=== PATIENT | female | born 1950 | race Caucasian/White ===

== ENCOUNTER → 2020-04-07 14:06 | Outpatient (BNVA) | payer MEDICARE, SELFPAY | PROVIDERS: PCP Internal Medicine; Visit Provider Anesthesiology | DX: M19.011 Primary osteoarthritis, right shoulder (principal); M19.012 Primary osteoarthritis, left shoulder; M17.0 Bilateral primary osteoarthritis of knee; G89.4 Chronic pain syndrome | CPT/HCPCS: 99212 ==

== ENCOUNTER → 2020-09-27 12:51 | Outpatient (BNVA) | payer MEDICARE, SELFPAY | PROVIDERS: PCP Internal Medicine; Referring Provider Internal Medicine; Visit Provider Surgery | DX: K43.9 Ventral hernia without obstruction or gangrene (principal); E66.9 Obesity, unspecified; F17.200 Nicotine dependence, unspecified, uncomplicated; Z68.31 Body mass index [BMI] 31.0-31.9, adult | CPT/HCPCS: Q3014 ==

== ENCOUNTER → 2020-10-29 08:56 | Outpatient (BNVA) | payer MEDICARE, SELFPAY | PROVIDERS: PCP Internal Medicine; Visit Provider Surgery | DX: E66.9 Obesity, unspecified (principal); Z68.31 Body mass index [BMI] 31.0-31.9, adult | CPT/HCPCS: 99212 ==

== ENCOUNTER → 2022-02-01 09:23 | Outpatient (BNVA) | payer MEDICARE, SELFPAY | PROVIDERS: PCP Internal Medicine; Visit Provider Anesthesiology | DX: M19.011 Primary osteoarthritis, right shoulder (principal); M19.012 Primary osteoarthritis, left shoulder; M17.0 Bilateral primary osteoarthritis of knee; M25.511 Pain in right shoulder; M25.512 Pain in left shoulder; G89.4 Chronic pain syndrome | CPT/HCPCS: 99212 ==

== ENCOUNTER 2022-02-28 06:08 | Outpatient (REF) | payer MEDICARE, SELFPAY | END 2022-02-28 06:09 | disposition home or self-care (01) | LOC: CF 06:08 | PROVIDERS: Visit Provider Anesthesiology | DX: M25.511 Pain in right shoulder (principal); M25.512 Pain in left shoulder ==

== ENCOUNTER → 2022-06-19 15:20 | Outpatient (BNVA) | payer MEDICARE, SELFPAY | PROVIDERS: PCP Internal Medicine; Visit Provider Anesthesiology | DX: M19.011 Primary osteoarthritis, right shoulder (principal); M19.012 Primary osteoarthritis, left shoulder; M17.0 Bilateral primary osteoarthritis of knee; M25.511 Pain in right shoulder; M25.512 Pain in left shoulder; S42.92XP Fracture of left shoulder girdle, part unspecified, subsequent encounter for fracture with malunion; G89.4 Chronic pain syndrome | CPT/HCPCS: 99212 ==

== ENCOUNTER 2022-07-06 15:18 | Outpatient (REF) | payer MEDICARE, SELFPAY ==
--- NOTE | ~2022-07-06 | XR_ITS ---
EXAMINATION: XR SHOULDER, LEFT CLINICAL INFORMATION: Pain COMPARISON: None available. TECHNIQUE: Two views of the left shoulder. FINDINGS: There is severe arthritis at the glenohumeral and acromioclavicular joints. There may be anterior subluxation of the humeral head with respect to the glenoid on the Y view. Bone alignment is otherwise normal. No fracture or dislocation. Osteopenia. Soft tissue swelling. XR/XR shoulder LT min 2V IMPRESSION: Severe arthritis. Question anterior subluxation of the humeral head with respect to the glenoid on the Y view.
== END 2022-07-06 15:19 | disposition home or self-care (01) ==
LOC: HO.HOSX 15:18
PROVIDERS: Visit Provider Physician Assistant
DX: M19.012 Primary osteoarthritis, left shoulder (principal); Z87.81 Personal history of (healed) traumatic fracture
CPT/HCPCS: 73030; 99202

== ENCOUNTER → 2022-08-21 08:45 | Outpatient (BNVA) | payer MEDICARE, SELFPAY | PROVIDERS: PCP Internal Medicine; Visit Provider Anesthesiology | DX: M19.011 Primary osteoarthritis, right shoulder (principal); M19.012 Primary osteoarthritis, left shoulder; M17.0 Bilateral primary osteoarthritis of knee; M25.511 Pain in right shoulder; M25.512 Pain in left shoulder | CPT/HCPCS: 99212 ==

== ENCOUNTER → 2022-08-31 13:50 | Outpatient (BNVA) | payer MEDICARE, SELFPAY | PROVIDERS: PCP Internal Medicine; Visit Provider Anesthesiology ==

== ENCOUNTER 2022-09-12 06:09 | Outpatient (REF) | payer MEDICARE, SELFPAY | END 2022-09-12 06:10 | disposition home or self-care (01) | LOC: CF 06:09 | PROVIDERS: Visit Provider Anesthesiology | DX: M19.012 Primary osteoarthritis, left shoulder (principal); M25.512 Pain in left shoulder; M19.011 Primary osteoarthritis, right shoulder; M25.511 Pain in right shoulder; G89.4 Chronic pain syndrome; M17.0 Bilateral primary osteoarthritis of knee | CPT/HCPCS: 64415 ==

== ENCOUNTER → 2022-09-14 10:38 | Outpatient (BNVA) | payer MEDICARE, SELFPAY | PROVIDERS: PCP Internal Medicine; Visit Provider Anesthesiology | DX: M19.011 Primary osteoarthritis, right shoulder (principal); M19.012 Primary osteoarthritis, left shoulder; M17.0 Bilateral primary osteoarthritis of knee; M25.511 Pain in right shoulder; M25.512 Pain in left shoulder; G89.4 Chronic pain syndrome | CPT/HCPCS: 99212 ==

== ENCOUNTER → 2022-09-21 14:00 | Outpatient (BNVA) | payer MEDICARE, SELFPAY | PROVIDERS: PCP Internal Medicine; Visit Provider Anesthesiology ==

== ENCOUNTER → 2022-10-04 15:49 | Outpatient (BNVA) | payer MEDICARE, SELFPAY | PROVIDERS: PCP Internal Medicine; Visit Provider Anesthesiology | DX: M19.011 Primary osteoarthritis, right shoulder (principal); M19.012 Primary osteoarthritis, left shoulder; M17.0 Bilateral primary osteoarthritis of knee; M25.511 Pain in right shoulder; M25.512 Pain in left shoulder | CPT/HCPCS: 99212 ==

== ENCOUNTER 2022-10-12 09:34 | Day surgery (SDC) | payer MEDICARE, SELFPAY ==
--- NOTE | 2022-10-12 | ECG_ITS ---
Test Reason : preop Blood Pressure : / mmHG Vent. Rate : 060 BPM Atrial Rate : 060 BPM P-R Int : 220 ms QRS Dur : 088 ms QT Int : 404 ms P-R-T Axes : 066 026 038 degrees QTc Int : 404 ms Sinus rhythm with 1st degree A-V block Cannot rule out Anterior infarct , age undetermined Abnormal ECG No previous ECGs available Referred By: Kristi Ocampo Electronically Signed By:RONALD BONILLA MD
[2022-10-12 10:24] VITALS: BMI 27.3
[2022-10-12 10:30] VITALS: BP 153/68; PULSE 60; RESP 18; TEMP 36.4; O2SAT 96
[2022-10-12] MEDS: Lactated Ringers 1,000 ML 100 ML IVCONT (10:50)
--- NOTE | 2022-10-12 11:31 | HO.ANESPROP2 ---
HPI - Anesthesia Eval Consult details Narrative: for left interscalene stim trial PMFSH Active Problems Active Problems: All Active Problems (Updated 08/21/22 @ 09:23 by Hemant Hernandez MD) Left shoulder pain (Acute) Osteoarthritis of left shoulder (Acute) Fracture of left shoulder girdle with malunion (Acute) Bilateral shoulder pain (Acute) Obesity (Acute) BMI 31.0-31.9,adult (Acute) Abdominal wall hernia (Acute) Smoking addiction (Acute) Chronic pain syndrome (Acute) Osteoarthritis of knees, bilateral (Acute) Osteoarthritis of shoulders, bilateral (Acute) Past Medical History Medical History Anxiety Chronic pain syndrome History of jejunostomy tube placement HTN (hypertension) Obesity Osteoarthritis of knees, bilateral Osteoarthritis of shoulders, bilateral Family History Family History Mother Alzheimer's dementia Father Heart attack Sister Car occupant injured in traffic accident Brother No problems noted. Family history of problems with anesthesia: No Surgical History Surgical History H/O ventral hernia repair History of bilateral knee replacement History of carpal tunnel surgery History of endoscopic gastrointestinal surgery History of hip surgery History of sleeve gastrectomy Hx of knee surgery S/P laparoscopic cholecystectomy History of Problems with Anesthesia: No Social History Social History Alcohol intake: never Patient Tobacco Use Status: Former Tobacco user Quit Date: 10/15/2020 Tobacco use type: Cigarette Cigarettes Per Day: 10 Years Smoked: 20 Use of substances other than those prescribed or required for medical reasons: Yes Substance Use Type Other:: chocolates cbd Are you DNR?: Yes Advance Directives: No Advance Directives Information Provided: Yes Meds Allergies Allergy/AdvReac Type Severity Reaction Status Date / Time flower and weed pollen Allergy Unknown itching Uncoded 06/19/22 15:44 eyes,sneezing,coughing,choking,runny eyes mold Allergy Unknown congestion Uncoded 06/19/22 15:44 Active Medications: Current Medications Lactated Ringer's (Lr) 1,000 mls @ 100 mls/hr IVCONT .Q10H DEVON Last Admin: 10/12/22 10:50 Dose: 100 mls/hr Home Medications Medication Instructions Recorded Confirmed Last Taken Type amlodipine 5 mg tablet 5 mg PO DAILY 09/27/20 06/19/22 Unknown History buspirone 10 mg tablet 10 mg PO BID 09/27/20 06/19/22 Unknown History cholecalciferol (vitamin D3) 25 25 mcg PO DAILY 09/27/20 06/19/22 Unknown History mcg (1,000 unit) capsule duloxetine 60 mg capsule,delayed 60 mg PO QAM 09/27/20 06/19/22 Unknown History release fluticasone propionate 50 spray intranasal 09/27/20 06/19/22 Unknown History mcg/actuation nasal spray,suspension furosemide 20 mg tablet 20 mg PO DAILY PRN 09/27/20 06/19/22 Unknown History hydrochlorothiazide 12.5 mg tablet 12.5 mg PO DAILY PRN 09/27/20 06/19/22 Unknown History losartan 50 mg tablet 50 mg PO DAILY 09/27/20 06/19/22 Unknown History mecobalamin (vitamin B12) 1,000 1,000 mcg sublingual DAILY 09/27/20 06/19/22 Unknown History mcg disintegrating tablet,sublingual khcwzanubsth-ntnrzaxh-zswcym tablet 1 tab PO DAILY 09/27/20 06/19/22 Unknown History pantoprazole 40 mg tablet,delayed 40 mg PO BID 09/27/20 06/19/22 Unknown History release trazodone 50 mg tablet 50 mg PO BEDTIME 09/27/20 06/19/22 Unknown History vitamin E 200 unit capsule 200 unit PO BID 09/27/20 06/19/22 Unknown History buprenorphine 8 mg-naloxone 2 mg 2 tab sublingual DAILY 10/29/20 06/19/22 Unknown History sublingual tablet gabapentin 600 mg tablet 600 mg PO TID 07/06/22 Unknown History carvedilol 25 mg tablet 25 mg PO BID 08/21/22 Unknown History cinacalcet 60 mg tablet mg PO 08/21/22 Unknown History lorazepam 0.5 mg tablet 0.5 mg PO Q12H PRN anxiety 08/21/22 Unknown History methocarbamol 500 mg tablet 1,000 mg PO BID 08/21/22 Unknown History sertraline 50 mg tablet 50 mg PO DAILY 08/21/22 Unknown History sucralfate 1 gram tablet 1 g PO QID 08/21/22 Unknown History Exam Exam Date and Time: October 12, 2022 1131 Height,Weight and Vital Signs: Height 5 ft 5 in Weight 74.389 kg Last Vital Signs Temp 97.5 F 10/12/22 10:30 Pulse 60 10/12/22 10:30 Resp 18 10/12/22 10:30 BP 153/68 H 10/12/22 10:30 Pulse Ox 96 10/12/22 10:30 O2 Del Method Room Air 10/12/22 10:30 Airway Mallampati Class: II TM Dist: >3cm Neck ROM: Limited Denture: Upper and Lower Heart: rrr Lungs: cta Assessment and Plan Assessment Anesthesia Assessment: Anesthesia Plan Discussed and Chart Reviewed Final Anesthetic Review Family History of Problems with Anesthesia: No History of Problems with Anesthesia: No ASA Class: III Final Preanesthetic Review: No Changes in Pt Med Stat, Meds/Allgs Chart Reviewed, Consent Obtained/Reviewed and Anes Risks/Benef Reviewed Patient Risk: Low Procedure Risk: Low Anesthetic Plan Anesthetic Plan: MAC: Disposition: Standard PACU
--- NOTE | 2022-10-12 11:48 | MHC.SHP ---
Pre-Procedural Eval Section A Date of Service: 10/12/22 The patient is an INPATIENT: No Changes since office visit: Yes Patient answered all questions The History & Physical has been completed within 30 days and I have reviewed it.: No Section B Chief Complaint: Primary osteoarthritis, left shoulder pain Details of Present Illness: as above Relevant Family History (Specify if Yes): No Relevant Social History: None Present Medications: see Short Stay Collaborative assessment Medical History: No relevant PMH History of Previous Operations: Relevant previous surgery/procedure and date(s) Allergies: Allergies Allergy/AdvReac Type Severity Reaction Status Date / Time flower and weed pollen Allergy Unknown itching Uncoded 06/19/22 15:44 eyes,sneezing,coughing,choking,runny eyes mold Allergy Unknown congestion Uncoded 06/19/22 15:44 Review of Systems Sugical H&P ROS: Negative: Constitution, Cardiovascular, Respiratory, Neurological, Psychiatric, Hem-Onc, Allergic/Immunologic, Gastrointestinal, Genitourinary, Musculoskeletal, Integumentary, Endocrine and Eyes/Ears/Nose/Throat Exam Surgical H&P Exam: Normal: HEENT, Normal: Heart, Normal: Lungs, Normal: Extremities, Normal: Abdomen, Normal: Skin and Normal: Neurological Plan Diagnosis/Plan: Unchanged I have reviewed the history and physical and performed a pertinent physical examination on my patient. No changes have occurred unless specified. Time Spent With Patient Time: Total time managing care of this patient today _5___ minutes.
[2022-10-12 13:00] VITALS: BP 123/96; PULSE 62; RESP 17; TEMP 36.7; O2SAT 97
[2022-10-12 13:15] VITALS: BP 162/82; PULSE 64; RESP 16; O2SAT 97
[2022-10-12 13:30] VITALS: BP 117/95; PULSE 66; RESP 16; O2SAT 97
[2022-10-12 13:45] VITALS: BP 166/84; PULSE 68; RESP 16; TEMP 36.7; O2SAT 98
--- NOTE | 2022-10-12 14:01 | PM.OP ---
Brief Operative Note Date of Service: 10/12/22 Pre-op diagnosis: adhesive capsulitis, chronic arthritis left shoulder, Complex regional pain syndrome left shoulder Post-op diagnosis: same Procedure: Trial of PNS stim wave/ curonix interscalene left position. Implants: None permanent. Surgeon: Hemant Hernandez MD Anesthesia: MAC Was an Gas Pit Worker used for this Procedure?: No Estimated blood loss (mL): 4 Condition: stable Disposition: PACU
--- NOTE | 2022-10-12 14:04 | W.PM.OPN ---
Operative Note Operative Note Date of Service: 10/12/22 Narrative: Trial of Interscalene brachial plexus left peripheral nerve stimulation Stimwave. Covarrubias is very pleasant 71 years old female who is under observation in my office with severe left sided shoulder pain secondary to adhesive capsulitis and severe osteoarthritis of the left shoulder.? She came today to the operating room to perform a trial as above. After obtaining informed consent the patient was brought to the operating room.? She was positioned supine on the operating table, [place] [employer] monitors were applied and patient was deeply sedated. After that the patient left neck, left anterior shoulder and anterior left chest were prepped with ChloraPrep twice and draped with full body drape.? Sterilely draped ultrasound probe was brought of the operating field and ultrasound-guided picture of the brachial plexus in the interscalene position was demonstrated on the screen.? The area of interscalene groove was injected with mixture of lidocaine 2% and Marcaine 0.5% 1-1.? After that 13 gauge introducer blunt tip needle was inserted through the skin and advanced under ultrasound-guided picture in between C5 and C6 cervical nerve roots.? When needle was positioned appropriately - stylet was removed and guitar wire was inserted into the needle to prompt open interscalene soft tissues.? Pre assembled stimulating wire with stimulating copper stylet was inserted into the needle and advanced to the appropriate position below the C5 cervical nerve root.? After that the needle was withdrawn and care was taken to keep the stimulating wire in place. stimulating wire was taped to the skin using Steri-Strips and skin glue. Below the level of the 2nd contact on the antenna the stimulating catheter was tied on the itself. After that the stimulating catheter was taped to the skin using Tegaderm. Sterile dressings were applied. The patient tolerated procedure well she was taken outside of the operating room to PACU where she recovered uneventfully.
== END 2022-10-12 14:47 | disposition home or self-care (01) ==
PROVIDERS: Visit Provider Anesthesiology
PROC: (CPT 64555; principal; 2022-10-12 11:30)
DX: M25.512 Pain in left shoulder (principal); G89.4 Chronic pain syndrome; M75.02 Adhesive capsulitis of left shoulder; M19.012 Primary osteoarthritis, left shoulder; M17.0 Bilateral primary osteoarthritis of knee; Z96.653 Presence of artificial knee joint, bilateral; M81.0 Age-related osteoporosis without current pathological fracture; R54 Age-related physical debility; I10 Essential (primary) hypertension; F41.1 Generalized anxiety disorder; E66.9 Obesity, unspecified; Z68.27 Body mass index [BMI] 27.0-27.9, adult; Z98.84 Bariatric surgery status; Z98.890 Other specified postprocedural states; Z87.891 Personal history of nicotine dependence
CPT/HCPCS: 64555; 93005; C1778; J0131; J0690; J1100; J2250; J2795

== ENCOUNTER → 2022-10-12 09:34 | Outpatient (BNV) | payer MEDICARE, SELFPAY | PROVIDERS: Visit Provider Anesthesiology | DX: M25.512 Pain in left shoulder (principal); M19.012 Primary osteoarthritis, left shoulder | CPT/HCPCS: 64555 ==

== ENCOUNTER → 2022-10-12 11:33 | Outpatient (BNV) | payer MEDICARE, SELFPAY | PROVIDERS: Visit Provider Internal Medicine Cardiovascular Disease | DX: R94.31 Abnormal electrocardiogram [ECG] [EKG] (principal) | CPT/HCPCS: 93010 ==

== ENCOUNTER 2022-10-19 09:07 | Outpatient (AMB) | payer MEDICARE, SELFPAY ==
--- NOTE | 2022-10-19 09:20 | A.OFFVIS_ITS ---
Intake Vital Signs 10/19/22 09:30 Height 5 ft 5 in Weight 172 lb BMI 28.6 BP 162/74 H Blood Pressure Location Rt brachial Position Sitting Respiration 16 Pulse 54 Pulse Source Pulse Oximeter Pulse Oximetry (%) 97 Oxygen Delivery Method Room Air Intake Visit Reasons: s/p Left Interscalene PNS Trial 10/12/22 Intake Note: patient comes in for post-op. Allergies flower and weed pollen Allergy (Unknown, Uncoded 06/19/22 15:44) itching eyes,sneezing,coughing,choking,runny eyes mold Allergy (Unknown, Uncoded 06/19/22 15:44) congestion HPI HPI Comments History of Present Illness Details Saumya is back in my office after a a trial of PNS stim wave/curonix . The patient reported 60% pain reduction while on the trial. But most import antly patient reported improvement of the function of the left upper extremity ability to handle kitchen utensils, bathroom supplies, reaching with hand above the level of the head. She is very much interested in implantation of the interscalene position on the left of curonix . I will schedule her for the procedure accordingly. The patient received prior to the trial diagnostic left inter scalene brachial plexus block. 7 cc of Ropivacaine were given to the patient. The patient reported that 2 hours after the procedure she had complete 100% pain relief. She had 80% pain relieve on next 4, 6, and 8 hours after the procedure. She reported better mobility in the left shoulder. She still reports good mobility of the left shoulder and some pain relieve in the left shoulder today. It looks like that she will be a good candidate for PNS Curonics/ Stimwave. She went for psychological evaluation and she was approved for PNS. she was referred with her left shoulder to orthopedic surgery, Dr. Tiwari's staff examined the patient and did not recommend any interventions. 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 We tried in the past suprascapular notch injection and did not work for the patient. She requests me meanwhile to help her pain with topical medications. I strongly discouraged her to take any opioids for her pain. I recommended her and I will complete compounding pharmacy topical cream to help her pain. I personally do not think that steroid injections are good idea for this patient due to severe osteoporosis. Prior: ? She in the past was under my observation for multiple pain generators.? Today she presents with severe pain in bilateral shoulders.? She is complaining that left shoulder hurts more than right.? She was offered diagnostic suprascapular nerve block but never attended the procedure because she happened to be in rehab facility at the time of the scheduled injection.? She was our chronic opioid patient until October of 2019.? SHE failed TO APPEAR ON THE PILL COUNT. SHE WAS SUSPENDED FOR 1 YEAR WITH METHADONE 5 MG T.I.D.. ? History of gastric sleeve surgery, history of malabsorption of Calcium, severe osteoarthritis. She reports severe shoulder pain and moderate knee pain she reports that she was a subject of the evaluation of orthopedic surgeon in the past and she was offered total shoulder replacement procedure. She has end-stage bilateral shoulder osteoarthritis. ? She also reports that pain in knees are very severe and she is very minimally mobile because of her knees. She is using a walker to prevent falls because she reports her knees a getting locked down and she cannot hold her balance. She was subject of physical therapy in the past. Last physical therapy was within 2 years. She reported some injections to perform in her shoulders and in her knees originally those injections were helping her however lately she discovered her pain unaffected by injections. ? She is reporting chronic pain all over the body. SHE COMPLAINS ON FOOTDROP AND ALSO COMPLAINS ON NUMBNESS ON BILATERAL LOWER EXTREMITIES BELOW THE LEVEL OF THE KNEES. ? She was longstanding opioid patient. She used to be on very elevated exuberant doses of opioid medications few years ago. She switch her provider to doctor Berrios and doctor Byrnes she a started her on Suboxone she was on 8 mg/2 mg of Suboxone twice a day orally. Before that she was on Suboxone 4 mg/t 2 mg. She reports her pain in the morning unbearable 9/10 and she reports her pain after Suboxone intake going down to 5/10 in about 1-1/2 hour period. ? HER PHQ SCORE IS EQUAL TO 13. ? HER OPIOID RISK ASSESSMENT IS EQUAL TO 8. ? TOTAL OPIOID RISK ASSESSMENT IS 21. ? SHE IS MODERATE RISK FOR OPIOID ADDICTIION. [facility] Medical History Anxiety Chronic pain syndrome History of jejunostomy tube placement HTN (hypertension) Obesity Osteoarthritis of knees, bilateral Osteoarthritis of shoulders, bilateral Surgical History H/O ventral hernia repair History of bilateral knee replacement History of carpal tunnel surgery History of endoscopic gastrointestinal surgery History of hip surgery History of sleeve gastrectomy Hx of knee surgery S/P laparoscopic cholecystectomy Family History Mother Alzheimer's dementia Father Heart attack Sister Car occupant injured in traffic accident Brother No problems noted. Social History Alcohol intake: never Patient Tobacco Use Status: Former Tobacco user Quit Date: 10/15/2020 Tobacco use type: Cigarette Cigarettes Per Day: 10 Years Smoked: 20 Review of Systems Const All systems reviewed & are unremarkable except as noted in HPI and below ENT Reports Normal hearing present Neuro Reports Normal hearing present, Denies confusion and Denies Sensory deficit (Neuro) Psych Denies confusion Physical Exam Vital Signs: Last Vital Signs Pulse 54 10/19/22 09:30 Resp 16 10/19/22 09:30 BP 162/74 H 10/19/22 09:30 Pulse Ox 97 10/19/22 09:30 Oxygen Delivery Method Room Air 10/19/22 09:30 BMI result Body Mass Index 28.6 Const General: No confusion Orientation/consciousness: No confusion HEENT Head: Yes normal to inspection, Yes normocephalic and Yes atraumatic Eyes General: appearance normal, both eyes and all related structures Resp Effort & Inspection: normal respiratory effort and able to speak in complete sentences Cardio Rate: regular rate Peripheral pulses: Peripheral pulses 2+ throughout GI Palpation (GI): Soft to palpation Skin General skin exam: no rashes or lesions noted Lesions: no lesions Rashes: no rashes Neuro General: No confusion Cranial nerves: Yes Normal hearing present Sensory Exam: No Sensory deficit (Neuro) Extrem Other: Left shoulder: Forward flexion and abduction 45 degrees. Able to reach top of head, mouth, and back pocket. Severe tenderness on palpation in the projection of the left shoulder. Crepitus with movement is sensed on palpation of the left shoulder. Assessment & Plan Assessment & Plan (1) Osteoarthritis of shoulders, bilateral: Code(s): M19.011 - Primary osteoarthritis, right shoulder; M19.012 - Primary osteoarthritis, left shoulder (2) Osteoarthritis of knees, bilateral: Code(s): M17.0 - Bilateral primary osteoarthritis of knee (3) Chronic pain syndrome: Code(s): G89.4 - Chronic pain syndrome (4) Bilateral shoulder pain: Code(s): M25.511 - Pain in right shoulder; M25.512 - Pain in left shoulder (5) Left shoulder pain: Code(s): M25.512 - Pain in left shoulder Plan: Plan of care as above. Diagnostic interscalene left nerve block was working extremely well for the patient. She was approved for psychological evaluation. Under trial of PNS s stim wave left interscalene knee position resulted in 60% pain improvement and remarkable improvement of the mobility of the left shoulder and activities of daily living she can not perform with that. She wants me to implant permanent placement of PNS stim wave in the left interscalene position. The procedure will be done under general anesthesia.. (6) Osteoarthritis of left shoulder: Code(s): M19.012 - Primary osteoarthritis, left shoulder Plan This patient was on chronic opioid therapy with us in the past. Currently due to severe osteoporosis and multiple comorbidities I did not think that initiation of chronic opioid therapy is a good idea for this patient. I think neuromodulation is very good idea to help her pain in the left shoulder I offered her interscalene nerve block on the left to diagnose her pain and possib ly prepare her for neuromodulation. She needs to go for psychological evaluation which will be arranged for the patient. I will arrange with performix topical premix medication to help her for shoulder pain. Coding Level of Care Code Est Pt Level 4 (91737) Diagnoses Osteoarthritis of shoulders, bilateral M19.011; M19.012 Osteoarthritis of knees, bilateral M17.0 Chronic pain syndrome G89.4 Bilateral shoulder pain M25.511; M25.512 Left shoulder pain M25.512 Osteoarthritis of left shoulder M19.012
[2022-10-19 09:30] VITALS: BP 162/74; PULSE 54; RESP 16; O2SAT 97; BMI 28.6
== END 2022-10-19 09:43 | disposition home or self-care (01) ==
PROVIDERS: Visit Provider Anesthesiology
DX: M19.011 Primary osteoarthritis, right shoulder (principal); M19.012 Primary osteoarthritis, left shoulder; M17.0 Bilateral primary osteoarthritis of knee; G89.4 Chronic pain syndrome; M25.511 Pain in right shoulder; M25.512 Pain in left shoulder
CPT/HCPCS: 99214

== ENCOUNTER → 2022-10-19 09:10 | Outpatient (BNVA) | payer MEDICARE, SELFPAY | PROVIDERS: Visit Provider Anesthesiology | DX: M19.011 Primary osteoarthritis, right shoulder (principal); M19.012 Primary osteoarthritis, left shoulder; M17.0 Bilateral primary osteoarthritis of knee; G89.4 Chronic pain syndrome; M25.511 Pain in right shoulder; M25.512 Pain in left shoulder; M81.0 Age-related osteoporosis without current pathological fracture | CPT/HCPCS: 99212 ==

== ENCOUNTER 2022-12-07 10:31 | Day surgery (SDC) | payer OTHER, SELFPAY ==
[2022-12-05 10:21] VITALS: BMI 28.6
--- NOTE | 2022-12-06 11:42 | HO.ANESPROP2 ---
Documented by User: Lucero Stevenson NP 12/06/22 11:43 HPI - Anesthesia Eval Consult details Narrative: 72yo F for Implantation of Curonix Interscalene Brachial PNS Implant s/p trial 09/2022 with MAC Suboxone daily PMFSH Active Problems Active Problems: All Active Problems (Updated 08/21/22 @ 09:23 by Hemant Hernandez MD) Abdominal wall hernia (Acute) Smoking addiction (Acute) BMI 31.0-31.9,adult (Acute) Obesity (Acute) Bilateral shoulder pain (Acute) Fracture of left shoulder girdle with malunion (Acute) Osteoarthritis of left shoulder (Acute) Left shoulder pain (Acute) Chronic pain syndrome (Acute) Osteoarthritis of knees, bilateral (Acute) Osteoarthritis of shoulders, bilateral (Acute) Past Medical History Medical History History of jejunostomy tube placement Anxiety Obesity HTN (hypertension) Chronic pain syndrome Osteoarthritis of knees, bilateral Osteoarthritis of shoulders, bilateral Family History Family History Mother Alzheimer's dementia Father Heart attack Sister Car occupant injured in traffic accident Brother No problems noted. Family history of problems with anesthesia: No Surgical History Surgical History S/P placement of nerve stimulator History of endoscopic gastrointestinal surgery S/P laparoscopic cholecystectomy H/O ventral hernia repair History of sleeve gastrectomy History of bilateral knee replacement History of carpal tunnel surgery History of hip surgery Hx of knee surgery History of Problems with Anesthesia: No Social History Social History Alcohol intake: never Patient Tobacco Use Status: Former Tobacco user Quit Date: 10/15/2020 Tobacco use type: Cigarette Cigarettes Per Day: 10 Years Smoked: 20 Second Hand Smoke Exposure: No Use of substances other than those prescribed or required for medical reasons: No Are you DNR?: No Advance Directives: No Advance Directives Information Provided: Yes Advance Directives on File: No Meds Allergies Allergy/AdvReac Type Severity Reaction Status Date / Time mold Allergy Intermediate congestion Uncoded 12/05/22 10:22 flower and weed pollen Allergy Mild itching Uncoded 12/05/22 10:22 eyes,sneezing,coughing,choking,runny eyes Home Medications Medication Instructions Recorded Confirmed Last Taken Type amlodipine 5 mg tablet 5 mg PO DAILY 09/27/20 12/05/22 Unknown History buspirone 10 mg tablet 10 mg PO BID 09/27/20 12/05/22 Unknown History cholecalciferol (vitamin D3) 25 25 mcg PO DAILY 09/27/20 12/05/22 Unknown History mcg (1,000 unit) capsule duloxetine 60 mg capsule,delayed 60 mg PO QAM 09/27/20 06/19/22 Unknown History release fluticasone propionate 50 1 spray intranasal DAILY 09/27/20 12/05/22 Unknown History mcg/actuation nasal spray,suspension furosemide 20 mg tablet 20 mg PO DAILY PRN fluid retention 09/27/20 12/05/22 Unknown History hydrochlorothiazide 12.5 mg tablet 12.5 mg PO DAILY PRN 09/27/20 06/19/22 Unknown History losartan 50 mg tablet 100 mg PO DAILY 09/27/20 12/05/22 Unknown History mecobalamin (vitamin B12) 1,000 1,000 mcg sublingual DAILY 09/27/20 12/05/22 Unknown History mcg disintegrating tablet,sublingual eeolpatvgdjd-yrmxluvv-pgpigf tablet 1 tab PO DAILY 09/27/20 12/05/22 Unknown History pantoprazole 40 mg tablet,delayed 40 mg PO BID 09/27/20 12/05/22 Unknown History release trazodone 50 mg tablet 50 mg PO BEDTIME 09/27/20 12/05/22 Unknown History vitamin E 200 unit capsule 200 unit PO BID 09/27/20 06/19/22 Unknown History buprenorphine 8 mg-naloxone 2 mg 2 tab sublingual DAILY 10/29/20 12/05/22 Unknown History sublingual tablet gabapentin 600 mg tablet 600 mg PO TID 07/06/22 12/05/22 Unknown History carvedilol 25 mg tablet 25 mg PO BID 08/21/22 12/05/22 Unknown History cinacalcet 60 mg tablet 60 mg PO DAILY 08/21/22 12/05/22 Unknown History lorazepam 0.5 mg tablet 0.5 mg PO Q12H PRN anxiety 08/21/22 12/05/22 Unknown History methocarbamol 500 mg tablet 1,000 mg PO BID 08/21/22 12/05/22 Unknown History sertraline 50 mg tablet 50 mg PO DAILY 08/21/22 12/05/22 Unknown History sucralfate 1 gram tablet 1 g PO QID 08/21/22 12/05/22 Unknown History celecoxib 100 mg capsule 100 mg PO BID 12/05/22 12/05/22 Unknown History clonidine HCl 0.1 mg tablet 0.1 mg PO DAILY PRN panic attack 12/05/22 12/05/22 Unknown History fenofibrate 54 mg tablet 54 mg PO DAILY 12/05/22 12/05/22 Unknown History nifedipine 30 mg tablet,extended 30 mg PO DAILY 12/05/22 12/05/22 Unknown History release venlafaxine 37.5 mg tablet 37.5 mg PO BID 12/05/22 12/05/22 Unknown History Exam Exam Date and Time: December 06, 2022 114 Height,Weight and Vital Signs: Height 5 ft 5 in Weight 78.018 kg Narrative Narrative: EKG 09/2022 Vent. Rate : 060 BPM ? ? Atrial Rate : 060 BPM ?? P-R Int : 220 ms? QRS Dur : 088 ms ? ? QT Int : 404 ms ? ? ? P-R-T Axes : 066 026 038 degrees ?? QTc Int : 404 ms ? Sinus rhythm with 1st degree A-V block Cannot rule out Anterior infarct , age undetermined Abnormal ECG No previous ECGs available ? Assessment and Plan Assessment Anesthesia Assessment: Chart Reviewed Final Anesthetic Review Family History of Problems with Anesthesia: No History of Problems with Anesthesia: No Documented by User: Nuha Mcknight MD 12/07/22 11:17 PMFSH Active Problems Active Problems: All Active Problems (Updated 12/07/22 @ 09:23 by Nuha Mcknight MD) Abdominal wall hernia (Acute) Smoking addiction (Acute)- Quit 2 years ago BMI 31.0-31.9,adult (Acute) Obesity (Acute) Bilateral shoulder pain (Acute) Fracture of left shoulder girdle with malunion (Acute) Osteoarthritis of left shoulder (Acute) Left shoulder pain (Acute) Chronic pain syndrome (Acute) Osteoarthritis of knees, bilateral (Acute) Osteoarthritis of shoulders, bilateral (Acute) Denies AVANI Past Medical History Medical History History of jejunostomy tube placement Anxiety Obesity HTN (hypertension) Chronic pain syndrome Osteoarthritis of knees, bilateral Osteoarthritis of shoulders, bilateral Family History Family History Mother Alzheimer's dementia Father Heart attack Sister Car occupant injured in traffic accident Brother No problems noted. Surgical History Surgical History S/P placement of nerve stimulator History of endoscopic gastrointestinal surgery S/P laparoscopic cholecystectomy H/O ventral hernia repair History of sleeve gastrectomy History of bilateral knee replacement History of carpal tunnel surgery History of hip surgery Hx of knee surgery Social History Social History Alcohol intake: never Patient Tobacco Use Status: Former Tobacco user Quit Date: 10/15/2020 Tobacco use type: Cigarette Cigarettes Per Day: 10 Years Smoked: 20 Second Hand Smoke Exposure: No Use of substances other than those prescribed or required for medical reasons: No Are you DNR?: No Advance Directives: No Advance Directives Information Provided: Yes Advance Directives on File: No Meds Allergies Allergy/AdvReac Type Severity Reaction Status Date / Time mold Allergy Intermediate congestion Uncoded 12/05/22 10:22 flower and weed pollen Allergy Mild itching Uncoded 12/05/22 10:22 eyes,sneezing,coughing,choking,runny eyes Home Medications Medication Instructions Recorded Confirmed Last Taken Type amlodipine 5 mg tablet 5 mg PO DAILY 09/27/20 12/05/22 Unknown History buspirone 10 mg tablet 10 mg PO BID 09/27/20 12/05/22 Unknown History cholecalciferol (vitamin D3) 25 25 mcg PO DAILY 09/27/20 12/05/22 Unknown History mcg (1,000 unit) capsule duloxetine 60 mg capsule,delayed 60 mg PO QAM 09/27/20 06/19/22 Unknown History release fluticasone propionate 50 1 spray intranasal DAILY 09/27/20 12/05/22 Unknown History mcg/actuation nasal spray,suspension furosemide 20 mg tablet 20 mg PO DAILY PRN fluid retention 09/27/20 12/05/22 Unknown History hydrochlorothiazide 12.5 mg tablet 12.5 mg PO DAILY PRN 09/27/20 06/19/22 Unknown History losartan 50 mg tablet 100 mg PO DAILY 09/27/20 12/05/22 Unknown History mecobalamin (vitamin B12) 1,000 1,000 mcg sublingual DAILY 09/27/20 12/05/22 Unknown History mcg disintegrating tablet,sublingual zhsbezhldjtn-mxotnyjo-uarwxl tablet 1 tab PO DAILY 09/27/20 12/05/22 Unknown History pantoprazole 40 mg tablet,delayed 40 mg PO BID 09/27/20 12/05/22 Unknown History release trazodone 50 mg tablet 50 mg PO BEDTIME 09/27/20 12/05/22 Unknown History vitamin E 200 unit capsule 200 unit PO BID 09/27/20 06/19/22 Unknown History buprenorphine 8 mg-naloxone 2 mg 2 tab sublingual DAILY 10/29/20 12/05/22 Unknown History sublingual tablet gabapentin 600 mg tablet 600 mg PO TID 07/06/22 12/05/22 Unknown History carvedilol 25 mg tablet 25 mg PO BID 08/21/22 12/05/22 Unknown History cinacalcet 60 mg tablet 60 mg PO DAILY 08/21/22 12/05/22 Unknown History lorazepam 0.5 mg tablet 0.5 mg PO Q12H PRN anxiety 08/21/22 12/05/22 Unknown History methocarbamol 500 mg tablet 1,000 mg PO BID 08/21/22 12/05/22 Unknown History sertraline 50 mg tablet 50 mg PO DAILY 08/21/22 12/05/22 Unknown History sucralfate 1 gram tablet 1 g PO QID 08/21/22 12/05/22 Unknown History celecoxib 100 mg capsule 100 mg PO BID 12/05/22 12/05/22 Unknown History clonidine HCl 0.1 mg tablet 0.1 mg PO DAILY PRN panic attack 12/05/22 12/05/22 Unknown History fenofibrate 54 mg tablet 54 mg PO DAILY 12/05/22 12/05/22 Unknown History nifedipine 30 mg tablet,extended 30 mg PO DAILY 12/05/22 12/05/22 Unknown History release venlafaxine 37.5 mg tablet 37.5 mg PO BID 12/05/22 12/05/22 Unknown History Exam Height,Weight and Vital Signs: Height 5 ft 5 in Weight 78.018 kg Vital Signs Temp Pulse Resp BP Pulse Ox O2 Del Method 12/07/22 10:58 97.7 F 54 18 147/77 H 96 Room Air Airway Mallampati Class: II TM Dist: >3cm Neck ROM: Full Denture: Upper and Lower Loose/Missing/Broken Teeth: Yes Heart: RRR Lungs: CTAB Assessment and Plan Assessment Anesthesia Assessment: Anesthesia Plan Discussed Final Anesthetic Review NPO: Yes ASA Class: III Final Preanesthetic Review: No Changes in Pt Med Stat, Meds/Allgs Chart Reviewed, Consent Obtained/Reviewed and Anes Risks/Benef Reviewed Patient Risk: Intermediate Procedure Risk: Intermediate Assessment/Block/Sedation in SS: Assess/Block/Sedation-SS Anesthetic Plan Anesthetic Plan: GA Disposition: Standard PACU
[2022-12-07] VITALS (8 sets, daily range): BP systolic 139–166; BP diastolic 60–93; PULSE 54–62; RESP 15–18; TEMP 36.5–36.6; O2SAT 93–98
[2022-12-07] MEDS: Lactated Ringers 1,000 ML 100 ML IVCONT (11:12)
--- NOTE | 2022-12-07 11:34 | MHC.SHP ---
Pre-Procedural Eval Section A Date of Service: 12/07/22 The patient is an INPATIENT: No Changes since office visit: Yes Patient answered all questions The History & Physical has been completed within 30 days and I have reviewed it.: No Section B Chief Complaint: Pain in left shoulder Details of Present Illness: as above, adhesive capsulitis left shoulder. Relevant Family History (Specify if Yes): No Relevant Social History: None Present Medications: None Medical History: No relevant PMH History of Previous Operations: Relevant previous surgery/procedure and date(s) Allergies: Allergies Allergy/AdvReac Type Severity Reaction Status Date / Time mold Allergy Intermediate congestion Uncoded 12/05/22 10:22 flower and weed pollen Allergy Mild itching Uncoded 12/05/22 10:22 eyes,sneezing,coughing,choking,runny eyes Review of Systems Sugical H&P ROS: Negative: Constitution, Cardiovascular, Respiratory, Neurological, Psychiatric, Hem-Onc, Allergic/Immunologic, Gastrointestinal, Genitourinary, Musculoskeletal, Integumentary, Endocrine and Eyes/Ears/Nose/Throat Exam Surgical H&P Exam: Normal: HEENT, Normal: Heart, Normal: Lungs, Normal: Extremities, Normal: Abdomen, Normal: Skin and Normal: Neurological Plan Diagnosis/Plan: Unchanged I have reviewed the history and physical and performed a pertinent physical examination on my patient. No changes have occurred unless specified. Time Spent With Patient Time: Total time managing care of this patient today _5___ minutes.
--- NOTE | 2022-12-07 14:22 | P.BOP_ITS ---
Brief Operative Note Date of Service: 12/07/22 Pre-op diagnosis: adhesive capsulitis left shoulder, left shoulder pain. Post-op diagnosis: same Implants: Implantation of freedom/ curonics peripheral nerve stimulator in the left interscalene brachial plexus position Surgeon: Hemant Hernandez MD Was an Voting Machine Mechanic used for this Procedure?: No Estimated blood loss (mL): 15 Pathology: none sent Condition: stable Disposition: PACU
--- NOTE | 2022-12-07 14:23 | P.OP_ITS ---
Operative Note Operative Note Date of Service: 12/07/22 Narrative: Saumya is very pleasant 72 years old female who came today to the operating room for implantation of the left peripheral nerve stimulator freedom/curonix in the interscalene position on the left. After obtaining informed consent and delineating risks of bleeding infection and peripheral nerve damage the patient was taken to the operating room where she was positioned supine on the operating table. [employer] monitors were applied and patient was induced with general LMA anesthesia. Time-out was performed naming the patient, date of date and time of the procedure nature of the procedure side inside the procedure risk of fire need for DVT prophylaxis need for antibiotics. The patient received 2 g of cefazolin intravenously 20 minutes before onset of the procedure. Left lateral neck, anterior shoulder and anterior chest were prepped with ChloraPrep and draped with full body drape. Interscalene groove was located on the lateral surface of the neck approximately in the projection of C6-C7 vertebra. The sterilely draped ultrasound probe was brought over the operating field and brachial plexus in interscalene position was demonstrated on the screen. Incision was made in interscalene groove after infiltration of the skin with mixture of lidocaine 2% and ropivacaine 0.5% 1-1, the length of the incision was 4 cm. Incision was widened in deepened with dull dissection and interscalene groove between anterior and middle interscalene muscle was detected. Echo stim needle was brought over the operating field and tip of the needle was used as they stimulator point. Location of the brachial plexus in the interscalene groove was confirmed by nerve stimulator. It appears to be that no needle advancement is needed to position the electrode parallel to brachial plexus. The curonix freedom electrode was brought on the operating field stirring stylet was removed and copper stimulating stylet was inserted into the electrode. The electrode was positioned along side the brachial plexus and stimulating paddle was applied to the electrode demonstrating appropriate shoulder response. After that 2 anchoring Tycron 0 0 sutures were applied to the tines area of the electrode to fast in electrode to the skin. After that to incisions on the anterior surface of the patient's chest were made to accommodate the body of the electrode. One incision was on the lateral border of the left pectoralis muscle projection to the skin and another horizontal incision was made in the center of the patient's left pectoralis muscle projection to the skin. The incisions were made after skin infiltration with mixture of lidocaine 2% and ropivacaine 0.5% 1:1. The incisions were widened and deepened using dull dissection thorough hemostasis was performed and then stimulating electrode was tunneled to the both of these incisions using tunneler device. After that below the level of the 2nd contact the electrode was tied on itself. The the coil was formed at the end of the electrode and excess of the length was severed with suture. Free non resorbable sutures were used to fix the coil in its position and then t the call was inserted under the patient's skin and subcutaneous tissues. Hemostasis was checked, at 1 point of the 2nd incision at the border of the pectoralis muscle hemostasis was achieved by using Surgicel and pressure. Surgicel was removed after that. All the wounds were irrigated using saline containing vancomycin and after that 3 -0 Polysorb sutures were used to close the wound and approximate level of the skin. rare za were applied to the skin level and they were smeared with bacitracin. After that sterile dressing was applied using 4x4s and Tegaderm. The the patient tolerated procedure well she was awaken extubated and taken outside of the operating room to recovery room for recovery.
== END 2022-12-07 16:03 | disposition home or self-care (01) ==
PROVIDERS: PCP Internal Medicine; Visit Provider Anesthesiology
PROC: (CPT 64555; principal; 2022-12-07 11:30)
DX: M75.02 Adhesive capsulitis of left shoulder (principal); M25.512 Pain in left shoulder; G89.4 Chronic pain syndrome; M19.012 Primary osteoarthritis, left shoulder; M81.0 Age-related osteoporosis without current pathological fracture; M17.0 Bilateral primary osteoarthritis of knee; I10 Essential (primary) hypertension; F41.1 Generalized anxiety disorder; E66.9 Obesity, unspecified; Z68.28 Body mass index [BMI] 28.0-28.9, adult; Z98.84 Bariatric surgery status; Z98.890 Other specified postprocedural states; Z87.891 Personal history of nicotine dependence
CPT/HCPCS: 64555; C1787; C1816; J0690; J1100; J2250; J2405; J2795; J3010; J3370

== ENCOUNTER → 2022-12-07 10:31 | Outpatient (BNV) | payer OTHER, SELFPAY | PROVIDERS: PCP Internal Medicine; Visit Provider Anesthesiology | DX: M25.512 Pain in left shoulder (principal) | CPT/HCPCS: 64555 ==

== ENCOUNTER 2022-12-14 09:32 | Outpatient (AMB) | payer MEDICARE, SELFPAY ==
--- NOTE | 2022-12-14 09:36 | MHC.OFFVIS ---
Intake Vital Signs 12/14/22 09:58 BP 99/54 L Blood Pressure Location Rt brachial Position Sitting Respiration 16 Pulse 55 Pulse Source Pulse Oximeter Pulse Oximetry (%) 95 Oxygen Delivery Method Room Air Intake Visit Reasons: S/p PNS CURONIX Implant 12/07/22 Intake Note: patient comes in for post-op appointment week 1. pain level today was 7/10. Allergies mold Allergy (Intermediate, Uncoded 12/05/22 10:22) congestion flower and weed pollen Allergy (Mild, Uncoded 12/05/22 10:22) itching eyes,sneezing,coughing,choking,runny eyes HPI HPI Comments History of Present Illness Details Saumya is back in my office after an implantation of PNS stim wave/curonix . The patient reported 60% pain reduction , increased time of 90, better mobility with her shoulder and better social interactions. She continues to were cervical collar to limit sharp turns on the neck. The wound was exposed, there is no redness no pathological discharge, there is no swelling, there is no tenderness on palpation patient reports mild discomfort overall related to the 3 postoperative wounds. I promised the patient that I will extend medications of hydromorphone for postoperative pain for 3 more days. She is on Suboxone program and she is subject of frequent urine drug screens but we can report to her Suboxone program once the require why the patient was placed on hydromorphone.. I will see her in 1 week for staple removals. The patient received prior to the trial diagnostic left inter scalene brachial plexus block. 7 cc of Ropivacaine were given to the patient. The patient reported that 2 hours after the procedure she had complete 100% pain relief. She had 80% pain relieve on next 4, 6, and 8 hours after the procedure. She reported better mobility in the left shoulder. She still reports good mobility of the left shoulder and some pain relieve in the left shoulder today. It looks like that she will be a good candidate for PNS Curonics/ Stimwave. She went for psychological evaluation and she was approved for PNS. she was referred with her left shoulder to orthopedic surgery, Dr. Tiwari's staff examined the patient and did not recommend any interventions. 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 We tried in the past suprascapular notch injection and did not work for the patient. She requests me meanwhile to help her pain with topical medications. I strongly discouraged her to take any opioids for her pain. I recommended her and I will complete compounding pharmacy topical cream to help her pain. I personally do not think that steroid injections are good idea for this patient due to severe osteoporosis. Prior: ? She in the past was under my observation for multiple pain generators.? Today she presents with severe pain in bilateral shoulders.? She is complaining that left shoulder hurts more than right.? She was offered diagnostic suprascapular nerve block but never attended the procedure because she happened to be in rehab facility at the time of the scheduled injection.? She was our chronic opioid patient until October of 2019.? SHE failed TO APPEAR ON THE PILL COUNT. SHE WAS SUSPENDED FOR 1 YEAR WITH METHADONE 5 MG T.I.D.. ? History of gastric sleeve surgery, history of malabsorption of Calcium, severe osteoarthritis. She reports severe shoulder pain and moderate knee pain she reports that she was a subject of the evaluation of orthopedic surgeon in the past and she was offered total shoulder replacement procedure. She has end-stage bilateral shoulder osteoarthritis. ? She also reports that pain in knees are very severe and she is very minimally mobile because of her knees. She is using a walker to prevent falls because she reports her knees a getting locked down and she cannot hold her balance. She was subject of physical therapy in the past. Last physical therapy was within 2 years. She reported some injections to perform in her shoulders and in her knees originally those injections were helping her however lately she discovered her pain unaffected by injections. ? She is reporting chronic pain all over the body. SHE COMPLAINS ON FOOTDROP AND ALSO COMPLAINS ON NUMBNESS ON BILATERAL LOWER EXTREMITIES BELOW THE LEVEL OF THE KNEES. ? She was longstanding opioid patient. She used to be on very elevated exuberant doses of opioid medications few years ago. She switch her provider to doctor Berrios and doctor Fitz jacobo a started her on Suboxone she was on 8 mg/2 mg of Suboxone twice a day orally. Before that she was on Suboxone 4 mg/t 2 mg. She reports her pain in the morning unbearable 9/10 and she reports her pain after Suboxone intake going down to 5/10 in about 1-1/2 hour period. ? HER PHQ SCORE IS EQUAL TO 13. ? HER OPIOID RISK ASSESSMENT IS EQUAL TO 8. ? TOTAL OPIOID RISK ASSESSMENT IS 21. ? SHE IS MODERATE RISK FOR OPIOID ADDICTIION. [facility] Medical History History of jejunostomy tube placement Anxiety Obesity HTN (hypertension) Chronic pain syndrome Osteoarthritis of knees, bilateral Osteoarthritis of shoulders, bilateral Surgical History S/P placement of nerve stimulator History of endoscopic gastrointestinal surgery S/P laparoscopic cholecystectomy H/O ventral hernia repair History of sleeve gastrectomy History of bilateral knee replacement History of carpal tunnel surgery History of hip surgery Hx of knee surgery Family History Mother Alzheimer's dementia Father Heart attack Sister Car occupant injured in traffic accident Brother No problems noted. Social History Alcohol intake: never Patient Tobacco Use Status: Former Tobacco user Quit Date: 10/15/2020 Tobacco use type: Cigarette Cigarettes Per Day: 10 Years Smoked: 20 Second Hand Smoke Exposure: No Review of Systems Const All systems reviewed & are unremarkable except as noted in HPI and below ENT Reports Normal hearing present Neuro Reports Normal hearing present, Denies confusion and Denies Sensory deficit (Neuro) Psych Denies confusion Physical Exam Vital Signs: Last Vital Signs Pulse 55 12/14/22 09:58 Resp 16 12/14/22 09:58 BP 99/54 L 12/14/22 09:58 Pulse Ox 95 12/14/22 09:58 Oxygen Delivery Method Room Air 12/14/22 09:58 Const General: No confusion Orientation/consciousness: No confusion HEENT Head: Yes normal to inspection, Yes normocephalic and Yes atraumatic Eyes General: appearance normal, both eyes and all related structures Resp Effort & Inspection: normal respiratory effort and able to speak in complete sentences Cardio Rate: regular rate Peripheral pulses: Peripheral pulses 2+ throughout GI Palpation (GI): Soft to palpation Skin General skin exam: no rashes or lesions noted Lesions: no lesions Rashes: no rashes Neuro General: No confusion Cranial nerves: Yes Normal hearing present Sensory Exam: No Sensory deficit (Neuro) Extrem Other: Left shoulder: Forward flexion and abduction 45 degrees. Able to reach top of head, mouth, and back pocket. Severe tenderness on palpation in the projection of the left shoulder. Crepitus with movement is sensed on palpation of the left shoulder. Assessment & Plan Assessment & Plan (1) Osteoarthritis of shoulders, bilateral: Code(s): M19.011 - Primary osteoarthritis, right shoulder; M19.012 - Primary osteoarthritis, left shoulder (2) Osteoarthritis of knees, bilateral: Code(s): M17.0 - Bilateral primary osteoarthritis of knee (3) Chronic pain syndrome: Code(s): G89.4 - Chronic pain syndrome (4) Bilateral shoulder pain: Code(s): M25.511 - Pain in right shoulder; M25.512 - Pain in left shoulder (5) Left shoulder pain: Code(s): M25.512 - Pain in left shoulder Plan: Plan of care as above. Diagnostic interscalene left nerve block was working extremely well for the patient. Diagnostic trial was working well for the patient as well. Today she presents for week 1 after the permanent implant. The dressing changes above the wounds healing appropriately. Staple removals a will be in 1 week. Limitations in activities of daily living and mobility is explained to the patient. (6) Osteoarthritis of left shoulder: Code(s): M19.012 - Primary osteoarthritis, left shoulder Plan This patient was on chronic opioid therapy with us in the past. Currently due to severe osteoporosis and multiple comorbidities I did not think that initiation of chronic opioid therapy is a good idea for this patient. However currently for postoperative pain related to 3 incision 1 on the neck and 2 on anterior surface of the chest I think it is necessary to prescribe patient little bit more of opioid medications. She is on Suboxone program elsewhere. Medications: New hydromorphone Partial Fill upon patient request. 2 mg PO Q6H 3 days PRN 12 tabs 0RF Postoperative pain Coding Level of Care Code Est Pt Level 4 (76547) Diagnoses Osteoarthritis of shoulders, bilateral M19.011; M19.012 Osteoarthritis of knees, bilateral M17.0 Chronic pain syndrome G89.4 Bilateral shoulder pain M25.511; M25.512 Left shoulder pain M25.512 Osteoarthritis of left shoulder M19.012
[2022-12-14 09:58] VITALS: BP 99/54; PULSE 55; RESP 16; O2SAT 95
== END 2022-12-14 10:14 | disposition home or self-care (01) ==
PROVIDERS: Visit Provider Anesthesiology
DX: M19.011 Primary osteoarthritis, right shoulder (principal); M19.012 Primary osteoarthritis, left shoulder; M17.0 Bilateral primary osteoarthritis of knee; G89.4 Chronic pain syndrome; M25.511 Pain in right shoulder; M25.512 Pain in left shoulder
CPT/HCPCS: 99024

== ENCOUNTER → 2022-12-14 09:32 | Outpatient (BNVA) | payer MEDICARE, SELFPAY | PROVIDERS: Visit Provider Anesthesiology | DX: G89.4 Chronic pain syndrome (principal); M19.011 Primary osteoarthritis, right shoulder; M25.511 Pain in right shoulder; M19.012 Primary osteoarthritis, left shoulder; M25.512 Pain in left shoulder; M17.0 Bilateral primary osteoarthritis of knee; M81.0 Age-related osteoporosis without current pathological fracture | CPT/HCPCS: 99212 ==

== ENCOUNTER 2022-12-20 09:43 | Outpatient (AMB) | payer MEDICARE, SELFPAY ==
--- NOTE | 2022-12-20 09:51 | MHC.OFFVIS ---
Intake Vital Signs 12/20/22 10:04 Height 5 ft 5 in Weight 185 lb BMI 30.8 BP 140/70 H Blood Pressure Location Lt brachial Position Sitting Respiration 14 Pulse 58 Pulse Source Pulse Oximeter Pulse Oximetry (%) 98 Oxygen Delivery Method Room Air Intake Visit Reasons: S/p PNS CURONIX Implant 12/07/22/Lvm Intake Note: patient comes in for post-op week 2. Allergies mold Allergy (Intermediate, Uncoded 12/05/22 10:22) congestion flower and weed pollen Allergy (Mild, Uncoded 12/05/22 10:22) itching eyes,sneezing,coughing,choking,runny eyes HPI HPI Comments History of Present Illness Details Saumya is back in my office after an implantation of PNS stim wave/curonix . The patient reported 60% pain reduction , increased time of 90, better mobility with her shoulder and better social interactions. She continues to were cervical collar to limit sharp turns on the neck. The wound was exposed, there is no redness no pathological discharge, there is no swelling, there is no tenderness on palpation patient reports mild discomfort overall related to the 3 postoperative wounds. The wounds were washed with ChloraPrep and za were removed. Bacitracin dressing was applied. The patient now complains on right shoulder pain. She reports to me that since the improvement of the pain in left shoulder pain in right shoulder started to feel worse. She is under care of orthopedic surgeon for bilateral arthritis. I told her that she needs to bring me the document from the office of the doctor stating that no orthopedic surgery call procedures is possible to alleviate the pain. If it is so palliative measures could be employed and we can try interscalene block on the right to help the pain in the right shoulder following the trial stim wave and eventually in implant of the stim wave PNS. The patient received prior to the trial diagnostic left inter scalene brachial plexus block. 7 cc of Ropivacaine were given to the patient. The patient reported that 2 hours after the procedure she had complete 100% pain relief. She had 80% pain relieve on next 4, 6, and 8 hours after the procedure. She reported better mobility in the left shoulder. She still reports good mobility of the left shoulder and some pain relieve in the left shoulder today. It looks like that she will be a good candidate for PNS Curonics/ Stimwave. She went for psychological evaluation and she was approved for PNS. she was referred with her left shoulder to orthopedic surgery, Dr. Tiwari's staff examined the patient and did not recommend any interventions. 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 We tried in the past suprascapular notch injection and did not work for the patient. She requests me meanwhile to help her pain with topical medications. I strongly discouraged her to take any opioids for her pain. I recommended her and I will complete compounding pharmacy topical cream to help her pain. I personally do not think that steroid injections are good idea for this patient due to severe osteoporosis. Prior: ? She in the past was under my observation for multiple pain generators.? Today she presents with severe pain in bilateral shoulders.? She is complaining that left shoulder hurts more than right.? She was offered diagnostic suprascapular nerve block but never attended the procedure because she happened to be in rehab facility at the time of the scheduled injection.? She was our chronic opioid patient until October of 2019.? SHE failed TO APPEAR ON THE PILL COUNT. SHE WAS SUSPENDED FOR 1 YEAR WITH METHADONE 5 MG T.I.D.. ? History of gastric sleeve surgery, history of malabsorption of Calcium, severe osteoarthritis. She reports severe shoulder pain and moderate knee pain she reports that she was a subject of the evaluation of orthopedic surgeon in the past and she was offered total shoulder replacement procedure. She has end-stage bilateral shoulder osteoarthritis. ? She also reports that pain in knees are very severe and she is very minimally mobile because of her knees. She is using a walker to prevent falls because she reports her knees a getting locked down and she cannot hold her balance. She was subject of physical therapy in the past. Last physical therapy was within 2 years. She reported some injections to perform in her shoulders and in her knees originally those injections were helping her however lately she discovered her pain unaffected by injections. ? She is reporting chronic pain all over the body. SHE COMPLAINS ON FOOTDROP AND ALSO COMPLAINS ON NUMBNESS ON BILATERAL LOWER EXTREMITIES BELOW THE LEVEL OF THE KNEES. ? She was longstanding opioid patient. She used to be on very elevated exuberant doses of opioid medications few years ago. She switch her provider to doctor Berrios and doctor Byrnes she a started her on Suboxone she was on 8 mg/2 mg of Suboxone twice a day orally. Before that she was on Suboxone 4 mg/t 2 mg. She reports her pain in the morning unbearable 9/10 and she reports her pain after Suboxone intake going down to 5/10 in about 1-1/2 hour period. ? HER PHQ SCORE IS EQUAL TO 13. ? HER OPIOID RISK ASSESSMENT IS EQUAL TO 8. ? TOTAL OPIOID RISK ASSESSMENT IS 21. ? SHE IS MODERATE RISK FOR OPIOID ADDICTIION. [facility] Medical History History of jejunostomy tube placement Anxiety Obesity HTN (hypertension) Chronic pain syndrome Osteoarthritis of knees, bilateral Osteoarthritis of shoulders, bilateral Surgical History S/P placement of nerve stimulator History of endoscopic gastrointestinal surgery S/P laparoscopic cholecystectomy H/O ventral hernia repair History of sleeve gastrectomy History of bilateral knee replacement History of carpal tunnel surgery History of hip surgery Hx of knee surgery Family History Mother Alzheimer's dementia Father Heart attack Sister Car occupant injured in traffic accident Brother No problems noted. Social History Alcohol intake: never Patient Tobacco Use Status: Former Tobacco user Quit Date: 10/15/2020 Tobacco use type: Cigarette Cigarettes Per Day: 10 Years Smoked: 20 Second Hand Smoke Exposure: No Review of Systems Const All systems reviewed & are unremarkable except as noted in HPI and below ENT Reports Normal hearing present Neuro Reports Normal hearing present, Denies confusion and Denies Sensory deficit (Neuro) Psych Denies confusion Physical Exam Vital Signs: Last Vital Signs Pulse 58 12/20/22 10:04 Resp 14 12/20/22 10:04 BP 140/70 H 12/20/22 10:04 Pulse Ox 98 12/20/22 10:04 Oxygen Delivery Method Room Air 12/20/22 10:04 BMI result Body Mass Index 30.8 Const General: No confusion Orientation/consciousness: No confusion HEENT Head: Yes normal to inspection, Yes normocephalic and Yes atraumatic Eyes General: appearance normal, both eyes and all related structures Resp Effort & Inspection: normal respiratory effort and able to speak in complete sentences Cardio Rate: regular rate Peripheral pulses: Peripheral pulses 2+ throughout GI Palpation (GI): Soft to palpation Skin General skin exam: no rashes or lesions noted Lesions: no lesions Rashes: no rashes Neuro General: No confusion Cranial nerves: Yes Normal hearing present Sensory Exam: No Sensory deficit (Neuro) Extrem Other: Left shoulder: With significant improvement of range of motion. The pain is much better. Now she reports on range of motion of the right shoulder is restricted. It is objectively less than normal. Assessment & Plan Assessment & Plan (1) Osteoarthritis of shoulders, bilateral: Code(s): M19.011 - Primary osteoarthritis, right shoulder; M19.012 - Primary osteoarthritis, left shoulder (2) Osteoarthritis of knees, bilateral: Code(s): M17.0 - Bilateral primary osteoarthritis of knee (3) Chronic pain syndrome: Code(s): G89.4 - Chronic pain syndrome (4) Bilateral shoulder pain: Code(s): M25.511 - Pain in right shoulder; M25.512 - Pain in left shoulder (5) Left shoulder pain: Code(s): M25.512 - Pain in left shoulder Plan: Plan of care as above. Diagnostic interscalene left nerve block was working extremely well for the patient. Diagnostic trial was working well for the patient as well. Today she presents for week 2 after the permanent implant. The za removed bacitracin dressing applied. Limitations on mobility and ADL explained to the patient. She complains on pain in the right shoulder now. I need her orthopedic surgeon to right me a note where he would state that no surgical interventions are available or indicated to help right shoulder pain. After that we will proceed with interscalene nerve block following the stim wave/cure on X trial. (6) Osteoarthritis of left shoulder: Code(s): M19.012 - Primary osteoarthritis, left shoulder (7) Right shoulder pain: Code(s): M25.511 - Pain in right shoulder (8) Primary osteoarthritis, right shoulder: Code(s): M19.011 - Primary osteoarthritis, right shoulder Plan This patient was on chronic opioid therapy with us in the past. Currently due to severe osteoporosis and multiple comorbidities I did not think that initiation of chronic opioid therapy is a good idea for this patient. However currently for postoperative pain related to 3 incision 1 on the neck and 2 on anterior surface of the chest I think it is necessary to prescribe patient little bit more of opioid medications. She is on Suboxone program elsewhere. Coding Level of Care Code Est Pt Level 4 (25310) Diagnoses Osteoarthritis of shoulders, bilateral M19.011; M19.012 Osteoarthritis of knees, bilateral M17.0 Chronic pain syndrome G89.4 Bilateral shoulder pain M25.511; M25.512 Left shoulder pain M25.512 Osteoarthritis of left shoulder M19.012 Right shoulder pain M25.511 Primary osteoarthritis, right shoulder M19.011
[2022-12-20 10:04] VITALS: BP 140/70; PULSE 58; RESP 14; O2SAT 98; BMI 30.8
== END 2022-12-20 10:31 | disposition home or self-care (01) ==
PROVIDERS: Visit Provider Anesthesiology
DX: G89.4 Chronic pain syndrome (principal); M19.011 Primary osteoarthritis, right shoulder; M19.012 Primary osteoarthritis, left shoulder; M17.0 Bilateral primary osteoarthritis of knee
CPT/HCPCS: 99214

== ENCOUNTER → 2022-12-20 09:43 | Outpatient (BNVA) | payer MEDICARE, SELFPAY | PROVIDERS: Visit Provider Anesthesiology | DX: M19.011 Primary osteoarthritis, right shoulder (principal); M19.012 Primary osteoarthritis, left shoulder; M17.0 Bilateral primary osteoarthritis of knee; M25.512 Pain in left shoulder; M25.511 Pain in right shoulder | CPT/HCPCS: 99212 ==